=== PATIENT | female | born 1975 | race African-American/Black ===

== ENCOUNTER 2024-01-22 08:38 | Outpatient (AMB) | payer OTHER, SELFPAY ==
[2024-01-22 08:44] VITALS: BP 132/71; PULSE 114; O2SAT 99
--- NOTE | 2024-01-22 08:44 | A.OFFVIS_ITS ---
Vital Signs 01/22/24 08:44 Weight 205 lb BP 132/71 Blood Pressure Location Rt brachial Position Sitting Pulse 114 H Pulse Source Pulse Oximeter Pulse Oximetry (%) 99 Oxygen Delivery Method Room Air Intake Visit Reasons: Low back pain/intracept consult Allergies latex [LATEX] Allergy (Unknown, Unverified 12/02/19 16:08) RASH ondansetron [From Zofran] Allergy (Unknown, Verified 01/22/24 08:47) Unknown Medication List - Last Reconciled 01/22/24 by Maya Gerard cyclobenzaprine 5 mg PO BID PRN lidocaine 5% 2 patches topical DAILY lidocaine 5% (Lidoderm) 2 patches topical DAILY lorazepam (Ativan) 1 mg PO DAILY PRN meloxicam 15 mg PO DAILY pregabalin (Lyrica) 75 mg PO TID tramadol 50 mg PO BID PRN HPI Comments Details: Jeannie is very pleasant 48 years old female who was referred to my office by [facility] physician for performance of basivertebral nerve radiofrequency ablation intercept. She presents today in my office with complains on axial back pain. She denies radiation of the pain into bilateral lower extremities. She reports that flexing forward as well as flexing backwards aggravate her pain. She reports that flexing backwards aggravate her pain more than flexing forward. She reports no pain aggravation with coughing sneezing or straining down. She reports Valsalva maneuver does not aggravate her pain. She was diagnose with disc degeneration 14 years ago. She from the younger age was diagnosed with scoliosis however her cups angle is very small. In terms of tissue damage she reports her pain as aching stabbing shooting shock-like cramping squeezing sensation. In the past she had multiple procedures performed by [facility] for her pain syndrome. She received epidural steroid injections. She received facet joint injections. She received medial branch blocks as well as radiofrequency ablation. All of those procedures were effective initially however recently they fade ineffectiveness. She had multiple physical therapy sessions last time she went for physical therapy 6 months ago. She reported only pain aggravation on physical therapy. She tried NSAIDs and they upset her stomach. She tried tramadol with minimal improvement. She tried muscle relaxants with minimal improvement. She tried Lyrica and this helps her pain minimally. She continues home exercise programs in the hope to make her pain better however she does not feel any improvement. Weather changes aggravate her pain. She had an MRI formed by [facility], according to the referral note she has Modic type 2 changes at L4-L5 and S1 as well as upper lumbar vertebra. Her past medical history significant for irritable bowel syndrome history of migraines which occurs when she has her. And history of tonsillectomy and gallbladder surgery in the past. 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 She denies smoking cigarettes, she denies drinking alcohol, she denies recreational drugs, she denies soda. Review of Systems Const All systems reviewed & are unremarkable except as noted in HPI and below ENT Reports Normal hearing present Card Reports no additional complaints Resp Reports no additional complaints GI Reports as per HPI Reports no additional complaints Musc Reports as per HPI Neuro Reports no additional complaints, Reports Normal hearing present, Denies Abnormal speech present, Denies confusion and Denies Sensory deficit (Neuro) Psych Reports no additional complaints and Denies confusion Physical Exam Vital Signs: Last Vital Signs Pulse 114 H 01/22/24 08:44 BP 132/71 01/22/24 08:44 Pulse Ox 99 01/22/24 08:44 Oxygen Delivery Method Room Air 01/22/24 08:44 Const General: no acute distress; No confusion Nutritional Appearance: obese (Trivial obesity) Orientation/consciousness: patient oriented x3 and No confusion Eyes General: appearance normal, both eyes and all related structures Pupils: Equal, round and reactive pupils present EOM: EOMs intact bilaterally Neck Neck: Yes full ROM Chest Chest palpation & inspection: normal inspection of the chest Resp Effort & Inspection: normal respiratory effort, able to speak in complete sentences, normal respiratory pattern, no audible wheezes and no cough Cardio Jugular venous distension: no JVD GI Inspection: Yes normal to inspection Back/Spine/Pelvis Other: Able to stand on bilateral tiptoes and bilateral heels without difficulty. Able to lift the great toe bilaterally in separation from the rest of the toes. Mild objective weakness in the flexing hips upward. Freddie test is negative bi laterally. Valsalva maneuver is negative bilaterally. Flexing forward aggravate her pain and flexing backwards aggravate her pain as well. However when patient flex her pain slightly she feels pain alleviated. Loading test bilaterally aggravate her pain. Tenderness on palpation in bilateral paraspinal spinal region of the lowest portion of the lumbar spine. Neuro General: patient oriented x3, gait normal and No confusion Cranial nerves: Yes CN's II-XII intact bilaterally, Yes Equal, round and reactive pupils present, Yes Normal hearing present and Yes Ability to bilaterally elevate shoulders present Speech: No Abnormal speech present Gait exam (Neuro): Normal gait present Motor exam (neuro): 5/5 motor strength present throughout Sensory Exam: No Sensory deficit (Neuro) Extrem General: No pedal edema Psych Speech and movement: Normal speech and movement present Affect: normal affect Attitude: cooperative Thought process: Normal thought process present Thought content: Normal thought content present Insight: Good insight present (Psych) Judgement: Good judgement present (Psych) Assessment & Plan Assessment & Plan (1) Spondylosis of lumbar region without myelopathy or radiculopathy: Code(s): M47.816 - Spondylosis without myelopathy or radiculopathy, lumbar region Category: Medical (2) Vertebrogenic low back pain: Code(s): M54.51 - Vertebrogenic low back pain Category: Medical (3) Chronic pain syndrome: Code(s): G89.4 - Chronic pain syndrome Category: Medical (4) Disc degeneration, lumbar: Code(s): M51.369 - Other intervertebral disc degeneration, lumbar region without mention of lumbar back pain or lower extremity pain Category: Medical Plan I will start pre approval process for this patient to perform BVn radiofrequency ablation. However I think also that her pain is multifactorial and part of her pain is secondary to facet joint arthritis. I offered the patient while we are waiting for pre authorization for BVN radiofrequency ablation intercept I will perform diagnostic medial branch block L3-L4 does ramus L5 to assess how much of the pain of the patient is related to facet joint arthritis. Possibility exists to employed neuromodulation as sprint PNS to treat her condition. Patient Instructions: I here by testify that I spent 45 minutes in conversation with this patient as well as planning her care evaluating her prior records and organizing this note. Coding Level of Care Code New Pt Level 4 (34439) Diagnoses Spondylosis of lumbar region without myelopathy or radiculopathy M47.816 Vertebrogenic low back pain M54.51 Chronic pain syndrome G89.4 Disc degeneration, lumbar M51.369
== END 2024-01-22 09:15 | disposition home or self-care (01) ==
PROVIDERS: PCP Internal Medicine; Visit Provider Anesthesiology
DX: M47.816 Spondylosis without myelopathy or radiculopathy, lumbar region (principal); M54.51 Vertebrogenic low back pain; G89.4 Chronic pain syndrome; M51.369 Other intervertebral disc degeneration, lumbar region without mention of lumbar back pain or lower extremity pain
CPT/HCPCS: 99204

== ENCOUNTER → 2024-01-22 08:38 | Outpatient (BNVA) | payer OTHER, SELFPAY | PROVIDERS: PCP Internal Medicine; Visit Provider Anesthesiology | DX: M54.51 Vertebrogenic low back pain (principal); M47.816 Spondylosis without myelopathy or radiculopathy, lumbar region; M51.369 Other intervertebral disc degeneration, lumbar region without mention of lumbar back pain or lower extremity pain; G89.4 Chronic pain syndrome | CPT/HCPCS: 99202 ==